=== PATIENT | female | born 2000 | race Two or more races ===

== ENCOUNTER 2021-11-16 04:38 | Emergency (ER) | payer OTHER ==
[~2021-11-16] VITALS: Ht 165.1 cm; Wt 53.6 kg
[2021-11-16 04:51] VITALS: BP 128/81
== END 2021-11-16 11:19 | disposition left against medical advice (07) ==
LOC: ER 04:38 → EDBD 04:38 → ER 11:18
DX: S81.012A Laceration without foreign body, left knee, initial encounter (principal); S00.11XA Contusion of right eyelid and periocular area, initial encounter; R51.9 Headache, unspecified; F12.10 Cannabis abuse, uncomplicated; V43.52XA Car driver injured in collision with other type car in traffic accident, initial encounter; Y93.89 Activity, other specified; Y92.410 Unspecified street and highway as the place of occurrence of the external cause; Y99.8 Other external cause status
CPT/HCPCS: 70450; 71250; 72125; 73560; 74176